=== PATIENT | female | born 1945 | race Caucasian/White ===

== ENCOUNTER 2020-12-30 08:33 | Outpatient (RCR) | payer MEDICARE, OTHER, SELFPAY ==
[2020-12-30] MEDS: COVID-19 VACC, MRNA(PFIZER)/PF 30 MCG/0.3 ML SYRINGE IM (14:19)
[2021-01-20] MEDS: COVID-19 VACC, MRNA(PFIZER)/PF 30 MCG/0.3 ML SYRINGE IM (13:55)
== END 2021-03-29 23:59 ==
LOC: IMMUN 08:33
PROVIDERS: PCP Family Medicine; Visit Provider Family Medicine
DX: Z23 Encounter for immunization (principal)
CPT/HCPCS: 0001A; 0002A; 91300